=== PATIENT | female | born 1995 | race Caucasian/White ===

== ENCOUNTER 2019-07-10 01:27 | Emergency (ER) | payer OTHER ==
[~2019-07-10] VITALS: Ht 160 cm; Wt 69.1 kg
[2019-07-10] MEDS ORDERED: ONDANSETRON 4MG/2ML VIAL (J2405) IV ONE (01:45)
[2019-07-10] MEDS ORDERED: NS 1,000 ML IV ONE (01:45)
[2019-07-10 01:53] LABS: BASO % 0.6 % (0.0-1.0); EOS # 0.2 10^3/uL (0.0-0.50); EOS % 2.4 % (0.0-3.0); HEMATOCRIT 37.7 % (36.0-47.0); HEMOGLOBIN 12.9 g/dl (12.0-15.5); MEAN CORPUSCULAR HEMOGLOBIN 31.4 pg (27.0-33.0); MEAN CORPUSCULAR HGB CONC 34.2 g/dl (32.0-36.5); MEAN CORPUSCULAR VOLUME 91.7 fl (80.0-96.0); MONO # 0.5 10^3/uL (0.0-0.8); NEUTROPHILS # 3.3 10^3/uL (1.8-7.7); PLATELET COUNT, AUTOMATED 298 10^3/uL (150-450); RED BLOOD COUNT 4.11 10^6/uL (4.00-5.40)
[2019-07-10 02:45] LABS: ACETAMINOPHEN LEVEL < 2.0 UG/ML (10.0-30.0); ALBUMIN 4.1 GM/DL (3.2-5.2); ALT/SGPT 25 U/L (12-78); BILIRUBIN,DIRECT 0.1 MG/DL (0.0-0.2); BILIRUBIN,TOTAL 0.3 MG/DL (0.2-1.0); BLOOD UREA NITROGEN 11 MG/DL (7-18); CALCIUM LEVEL 8.7 MG/DL (8.5-10.1); CARBON DIOXIDE LEVEL 25 MEQ/L (21-32); CHLORIDE LEVEL 109 MEQ/L (98-107); CK-MB VALUE MASS 2.1 NG/ML (<3.6); CPK CREATINE PHOSPHOKINASE 88 U/L (26-192); CREATININE FOR GFR 0.81 MG/DL (0.55-1.30); ETHYL ALCOHOL (ETHANOL) 0.196 % (0.000-0.010); GLOMERULAR FILTRATION RATE > 60.0 (>60); GLUCOSE, FASTING 98 MG/DL (70-100); MB/CK RELATIVE INDEX 2.39 (< OR =4); POTASSIUM SERUM 3.5 MEQ/L (3.5-5.1); SALICYLATE LEVEL < 1.7 MG/DL (5.0-30.0); SODIUM LEVEL 144 MEQ/L (136-145); TROPONIN I < 0.02 NG/ML (< 0.10)
[2019-07-10 03:14] LABS: AMPHETAMINES LEVEL URINE NEGATIVE (NEGATIVE); BARBITURATES URINE NEGATIVE (NEGATIVE); BENZODIAZEPINES URINE NEGATIVE (NEGATIVE); CANNABINOIDS URINE NEGATIVE (NEGATIVE); COCAINE METABOLITE URINE NEGATIVE (NEGATIVE); METHADONE URINE NEGATIVE (NEGATIVE); OPIATES URINE NEGATIVE (NEGATIVE); PHENCYCLIDINE URINE NEGATIVE (NEGATIVE)
--- NOTE | 2019-07-10 03:17 | REPVR ---
EXAM: CT Head Without Contrast EXAM DATE/TIME: 07/10/2019 1:42 AM CLINICAL HISTORY: 24 years old, female; Altered mental status/memory loss; Confusion or disorientation TECHNIQUE: Imaging protocol: Computed tomography images of the head without contrast. Radiation optimization: All CT scans at this facility use at least one of these dose optimization techniques: automated exposure control; mA and/or kV adjustment per patient size (includes targeted exams where dose is matched to clinical indication); or iterative reconstruction. COMPARISON: No relevant prior studies available. FINDINGS: Brain: No acute intracranial hemorrhage or mass effect. No discrete geographic area of hypoattenuation to suggest large vessel territorial infarct identified at this time. Ventricles: No ventriculomegaly. Bones/joints: No acute fracture. Sinuses: No fluid levels. Mastoid air cells: No mastoid effusion. Soft tissues: Unremarkable. IMPRESSION: No acute intracranial hemorrhage, mass effect or evidence of large vessel territorial infarction. Electronically signed by: Shan Gil On 07/10/2019 03:16:45 AM
--- NOTE | 2019-07-10 06:37 | ECGEPIP ---
[facility] - ED Test Date: 2019-07-10 Pat Name: SAYRA VALDEZ Department: Room: - Gender: Female Bilingual Secretary: CINDY : 1995 Requested By: ELLIOT Coates Order Number: [id number] Reading MD: Po Maza Measurements Intervals [place] Rate: 60 P: 53 AL: 166 QRS: 53 QRSD: 97 T: 31 QT: 430 QTc: 432 Interpretive Statements SINUS RHYTHM ST elev probable normal early repol pattern VS PERICARDITIS NO PRIOR ECG FOR COMPARISON Electronically Signed on 07-10-2019 6:37:17 EDT by Po Maza
[2019-07-10 08:26] VITALS: BP 110/65
== END 2019-07-10 08:28 | disposition home or self-care (01) ==
LOC: M ED 01:27
DX: S09.90XA Unspecified injury of head, initial encounter (principal); X58.XXXA Exposure to other specified factors, initial encounter; Y92.89 Other specified places as the place of occurrence of the external cause; F10.229 Alcohol dependence with intoxication, unspecified; Y90.0 Blood alcohol level of less than 20 mg/100 ml; Z88.1 Allergy status to other antibiotic agents; Z88.2 Allergy status to sulfonamides
CPT/HCPCS: 70450; 80048; 80076; 80307; 82140; 82550; 82553; 84443; 84484; 85025; 93005; 93041; 94760; 96374; 99285; G0480; J2405

== ENCOUNTER → 2019-12-16 | Outpatient (CLI) | payer OTHER ==
[~2019-12-16] VITALS: Ht 165.1 cm; Wt 86.1 kg
[~2019-12-16] MED LIST: MAPA500T2 PO; NS 1,000 ML IV SCH; PRENTAB9 PO; cefTRIAXone SOD 1 GM in D5W MINI-BAG PLUS 50 ML IV ONE
[2019-12-16 11:03] VITALS: BP 108/58
--- NOTE | 2019-12-16 12:34 | REP ---
Second trimester obstetric ultrasound for anatomy: There is a single intrauterine gestation in a vertex presentation. There is movement and cardiac activity, the heart rate is 158 beats per minute. The placenta is posterior. There is no previa or abruptio. The placenta is grade zero. The amniotic fluid volume subjectively is normal. The cervix measures through 0.6 cm length. Gestational age by today's ultrasound is 23 weeks 4 days/HAIM 04/09/2020. Gestational age by LMP is 23 weeks 2 days/HAIM 04/11/2020. weight is 611 grams/1 pound, 5 ounces. This is the 54th percentile for 23 weeks 2 days. The following anatomic structures are identified and are unremarkable: Facial profile, upper lip, lungs, four-chamber heart, cardiac right ventricular outflow tract, diaphragm, stomach, cord insertion, three-vessel cord, kidneys, bladder and upper lower extremities. Suboptimally demonstrated because of position are: the intracranial contents, cardiac left ventricular outflow tract and spine. The followup study dedicated to these structures might be considered. Electronically Signed by Jose Cr MD 12/16/2019 12:26 P
[2019-12-16] MEDS: LR 1,000 ML IV SCH ×2 (13:21→13:34)
[2019-12-16 13:27] VITALS: BP 117/68
[2019-12-16 13:29] LABS: HEMATOCRIT 33.6 % (36.0-47.0); HEMOGLOBIN 11.5 g/dl (12.0-15.5); MEAN CORPUSCULAR HEMOGLOBIN 31.9 pg (27.0-33.0); MEAN CORPUSCULAR HGB CONC 34.2 g/dl (32.0-36.5); MEAN CORPUSCULAR VOLUME 93.1 fl (80.0-96.0); PLATELET COUNT, AUTOMATED 223 10^3/uL (150-450); RED BLOOD COUNT 3.61 10^6/uL (4.00-5.40); WHITE BLOOD COUNT 12.2 10^3/uL (4.0-10.0)
[2019-12-16 15:50] VITALS: BP 104/51
[2019-12-16 16:16] VITALS: BP 110/63
--- NOTE | 2019-12-16 18:26 | HPE ---
DATE OF ADMISSION: 12/16/2019 A 24-year-old 1, para 0, last menstrual period (LMP) 06/23/2019, estimated date of confinement (EDC) 04/11/2020 at 23 and 4 weeks of gestation with a history of multiple complaints, some of which were right upper quadrant pain, pelvic pressure, like she has to have a bowel movements through her vagina, and lower abdominal discomfort. Labs are A negative, HIV negative, hepatitis negative, RPR negative, rubella immune, Varicella immune. Pap normal. Urine was positive for Escherichia (E) coli. Unclear as to whether she had antibiotic for test of cure. She did inform us that the history intake that she was on Macrobid previously. Gonorrhea and chlamydia are negative. Blood pressure 104/51, respirations 16, pulse 83, temperature 98.5. Hemoglobin 1005, hematocrit 33.6, and platelets 223. Urine was 1014, pH 7. She had +2 esterase, +1 bacteria, +2 nitrates. She has strong indication of urinary tract infection and dehydration. On examination, symphysis fundus height is 24, vertex presenting, category 1 strip. The cervix is closed, posterior, and high. No vaginal bleeding or discharge. Ultrasound showed that the cervix was 3.6 cm long. No funneling. Vertex presenting. KRISTAL was normal, at the 54% for growth, and the cursory anatomy was normal. In summary, we have a 23+ week of gestation with severe dehydration with urinary tract infection. Plan of management is to hydrate. Give her an IV antibiotic plus oral antibiotics. Followup in 7-10 days with a repeat urine for test of cure. Precautions were given, oral medications were dispensed, and the patient was discharged undelivered. All questions were answered. A 40-minute discussion.
== END ==
LOC: M LDO 10:40
PROVIDERS: ATTEND Obstetrics & Gynecology
DX: O26.892 Other specified pregnancy related conditions, second trimester (principal); O23.42 Unspecified infection of urinary tract in pregnancy, second trimester; O99.282 Endocrine, nutritional and metabolic diseases complicating pregnancy, second trimester; Z3A.23 23 weeks gestation of pregnancy
CPT/HCPCS: 76811; 76817; 81001; 85027; 87088; 87186; 96360; 96361; G0378; G0463; J0696

== ENCOUNTER 2019-12-21 17:36 | Outpatient (CLI) | payer OTHER ==
[~2019-12-21 17:36] MED LIST changes: -NS 1,000 ML IV SCH; -cefTRIAXone SOD 1 GM in D5W MINI-BAG PLUS 50 ML IV ONE
[2019-12-21 18:00] VITALS: BP 114/60
--- NOTE | 2019-12-21 19:20 | IPNPDOC ---
Text Note Date of Service The patient was seen on 12/21/19. NOTE S: Ms. Jeremiah Kinsey is a 24yo at 24+0wks, EDC by 1st trimester US is [id number]. She presents to LND triage s/p fall today at 1720. She states she was chasing her dog and slipped on the ice; she states she struck the right side of her body, including her right abdomen. She initially felt pain and abdominal tightness after her fall, but she denies any pain now. She reports excellent movement, denies LOF/VB/CTX. O: VSS, BP normotensive FHR 145, moderate variability, + accels, no decels noted No CTX present Abdomen tender to palpation on side where she fell SSE/VE deferred at this time CBC/KB ordered A: Primip, not in labor, stable with reassuring status P: Report provided to Dr. Gonzalez Prolonged monitoring x4 hours after fall (2119) Continue to monitor maternal/ status. VS,Fishbone, I+O VS, Fishbone, I+O Vital Signs Date Time Temp Pulse Resp B/P (MAP) Pulse Ox O2 Delivery O2 Flow Rate FiO2 12/21/19 18:00 98.2 83 18 114/60 (78) 98.2 ISABEL COLE CNM Dec 21, 2019 19:20
[2019-12-21 19:37] LABS: HEMATOCRIT 33.6 % (36.0-47.0); HEMOGLOBIN 11.1 g/dl (12.0-15.5); MEAN CORPUSCULAR HEMOGLOBIN 31.4 pg (27.0-33.0); MEAN CORPUSCULAR VOLUME 95.2 fl (80.0-96.0); PLATELET COUNT, AUTOMATED 240 10^3/uL (150-450); RED BLOOD COUNT 3.53 10^6/uL (4.00-5.40); WHITE BLOOD COUNT 10.8 10^3/uL (4.0-10.0)
[2019-12-21 20:42] VITALS: BP 116/62
--- NOTE | 2019-12-22 09:20 | IPN ---
DATE: 12/21/2019 This lady was seen by the pantograph machine operator. The patient is 24 years old, 1, para 0, LMP 06/23/2019, EDC 04/11/2020 at 24 and 3 weeks of gestation. She had a fall on her abdomen with no loss of fluid. No contractions. No bleeding. Risk factors: She is Rh negative and presently has a urinary tract infection (UTI). Laboratories are A negative, HIV negative, hepatitis negative, RPR negative, rubella immune. Varicella immune. Pap normal. Urine was positive. Gonorrhea and chlamydia negative. Her Kleihauer-Betke was negative, and her hemoglobin 11.1, hematocrit 33.6 and platelets were 240. PHYSICAL EXAMINATION: She appears in no distress. Symphysis fundus height is 24. heart is present. No contractions on the monitor. Moderate variability, accelerations were noted. No visible evidence of loss of fluid, bleeding or discharge. Blood pressure was 114/60, respirations are 18, pulse 83, temperature is 98.2. After well over 2 hours, no contractions. No bleeding. heart was present. All blood work was normal. The patient was given precautions. She was discharged undelivered. She has a followup appointment on 12/29/2019.
== END 2019-12-21 20:50 | disposition home or self-care (01) ==
LOC: M LDO 17:36
PROVIDERS: ATTEND Registered Nurse Maternal Newborn
DX: Z04.3 Encounter for examination and observation following other accident (principal); W00.0XXA Fall on same level due to ice and snow, initial encounter; Y92.89 Other specified places as the place of occurrence of the external cause; Y93.K1 Activity, walking an animal; Y99.8 Other external cause status; Z3A.24 24 weeks gestation of pregnancy
CPT/HCPCS: 36415; 76815; 85027; 85460; G0378; G0463

== ENCOUNTER 2020-04-05 15:57 | Outpatient (CLI) | payer OTHER ==
[~2020-04-05] VITALS: Ht 165.1 cm; Wt 102.1 kg
[2020-04-05 16:17] VITALS: BP 111/72
[2020-04-05] MEDS ORDERED: TUMS500C PO (16:22)
--- NOTE | 2020-04-05 17:03 | IPNPDOC ---
Text Note Date of Service The patient was seen on 04/05/20. NOTE Triage Note Thea is a 24yo with SIUP at 39w1d by early u/s presenting for uncertainty whether she has had ROM. She notes she has had increased leakage of vaginal fluid for the past day, especially this morning. Has had to change panty liners and threw away a pair of wet painties. Not soaking pads. No vaginal bleeding. Does have ctx, feels them in her back mostly. Baby moving well. No intercourse in last 24hr. No f/c/CP/SOB. Has had some nausea and episode of diarrhea. She notes she was 2/60 yesterday in clinic. 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 SCE 2/80/-3, ballottable. Reassuring status. Benign exam and vitals wnl. Plan: -Safe for discharge home -Discussed labor precautions -good oral hydration -Keep next routine OB appt if no labor sooner -Safe for discharge Dr. Rosangela Petersen MD VS,Jamin, I+O VS, Jamin, I+O Vital Signs Date Time Temp Pulse Resp B/P (MAP) Pulse Ox O2 Delivery O2 Flow Rate FiO2 04/05/20 16:17 99.0 98 18 111/72 (85) Rosangela Petersen MD April 05, 2020 17:03
== END 2020-04-05 17:04 | disposition home or self-care (01) ==
LOC: M LDO 15:57
PROVIDERS: ATTEND Registered Nurse Maternal Newborn
DX: O26.893 Other specified pregnancy related conditions, third trimester (principal); N89.8 Other specified noninflammatory disorders of vagina; O47.1 False labor at or after 37 completed weeks of gestation; Z3A.39 39 weeks gestation of pregnancy
CPT/HCPCS: 59025; 76815; G0378; G0463

== ENCOUNTER 2020-04-06 02:49 | Inpatient (IN) | payer OTHER ==
[2020-04-06] VITALS (45 sets, daily range): BP systolic 74–142; BP diastolic 42–93
[~2020-04-06] VITALS: Ht 165.1 cm; Wt 95.4 kg
[~2020-04-06 02:49] MED LIST changes: +TUMS500C PO
[2020-04-06 03:46] LABS: HEMATOCRIT 35.1 % (36.0-47.0); HEMOGLOBIN 11.6 g/dl (12.0-15.5); MEAN CORPUSCULAR VOLUME 90.7 fl (80.0-96.0); PLATELET COUNT, AUTOMATED 162 10^3/uL (150-450); RED BLOOD COUNT 3.87 10^6/uL (4.00-5.40); WHITE BLOOD COUNT 12.8 10^3/uL (4.0-10.0)
[2020-04-06] MEDS ORDERED: LACTATED RINGER'S 1000 ML IV STA (03:57)
[2020-04-06] MEDS ORDERED: PROMETHAZINE INJ 25 MG/ML VIAL (J2550) IV ONE ×2 (04:15→14:00)
[2020-04-06] MEDS: BUTORPHANOL 2 MG/ML INJ (J0595) IV PRN ×2 (06:51→14:16)
[2020-04-06] MEDS: LR 1,000 ML IV SCH ×3 (06:52→17:08)
[2020-04-06] MEDS ORDERED: OXYTOCIN DRIP 30 UNITS in IV 1 EA IV SCH (07:30)
--- NOTE | 2020-04-06 07:46 | HPEPDOC ---
Obstetrical History & Physical General Date of Admission April 06, 2020 at 03:16 History of Present Illness Thea is a 24yo with SIUP at 39w2d by 7wk u/s re-presenting with CC of loss of fluid. She presented yesterday afternoon for similar complaint and SROM workup was all negative. She then went home and states that she had a large gush of fluid this time with continued leakage that soaked pads. Fluid clear. ROM occurred at 0215. She is grossly ruptured on presentation this time. Good movement. Feels ctx but not too strong yet. No vaginal bleeding. No f/c/n/v/CP/SOB. Chief Complaint: Contractions, term, LOF, term Information Provided By: Patient Care Care: Good Care Dating Final EDC: April 11, 2020 Final EDC by: 1st trimester (US) Antepartum Course Diagnos(e)s Rh negative (received Rhogam at 5wk for vaginal spotting and again 08 February 2020), excessive weight gain (30 pounds) with starting BMI 28 (overweight) Height (inches): 65 Pre- weight (lbs.): 170 Admission Weight (lbs.): 220 Change in Weight (lbs.): 30 Past Medical History Past Obstetrical History : Past Obstetrical History: Primgravida Past Medical History Medical History starting BMI 28 Surgical History: [place] teeth Family History Significant Family History: No pertinent family hx Social History Family situation: Spouse/partner home Psychosocial History: No pertinent psych hx * Smoker: non-smoker Alcohol: Denies Drugs: denies Imunizations Tdap status: current Influenza Status: current Allergies Coded Allergies: Sulfa (Sulfonamide Antibiotics) (Verified Allergy, Severe, ANAPHYLAXIS, 07/10/19) Medications Scheduled No.137/Iron/Folic Acd ( Vitamin Tablet) 1 Each Tablet, 1 TAB PO DAILY Scheduled PRN Calcium Carbonate (Tums) 200 Mg Tab.chew, 2 TAB PO Q4H PRN for HEARTBURN Physical Examination Physical Examination GENERAL: Alert and oriented times three. ABDOMEN: Gravid and non-tender to touch. FETUS: Is vertex (VTX) by sterile vaginal examination (SVE) EXTREMITIES: No edema BLE Grossly ruptured, clear fluid Vital Signs/I&O Vital Signs Date Time Temp Pulse Resp B/P (MAP) Pulse Ox O2 Delivery O2 Flow Rate FiO2 04/06/20 06:51 17 04/06/20 04:54 98.8 78 108/52 (70) Laboratory Data 24H LABS Laboratory Tests 2 04/06/20 03:24: Nucleated Red Blood Cells % (auto) 0.0 04/06/20 03:27: Serology Scanned Report Hepatitis B Testing CBC/BMP Laboratory Tests 04/06/20 03:24 Pertinent Laboratoy Data Blood Type: A- RBC Antibody Screen: Negative HIV: Negative Hepatitis B: Negative Hepatitis C: Unknown Rapid Plasma Reagin: Nonreactive Rubella: Immune Varicella: Immune Chlamydia/Gonorrhea: Negative Group B Streptococcus: Negative Quad Screen Test: Negative ([id number] normal) Glucose Tolerance Test: 84 Anatomy Ultrasound Ultrasound Date: Nov 24, 2019 Placenta Location: Posterior Normal Anatomy: Yes Placenta Previa: No Steroid Therapy Steroid Therapy: No Vaginal Examination Dilation: 2cm Effacement: 90% Station: -2 Cervical Consistency: Soft Cervical Position: Anterior Presentation: Cephalic presentation Assessment Heart Rate (FHR): 130 Variability: Moderate Accelerations: Positive Decelerations: None Tocometer Contractions: Yes Frequency: regular, every 2-5 min. Duration: greater than 60 seconds Strength: palpated as moderate Assessment/Plan Assessment Thea is a 24yo with SIUP at 39w2d by 7wk u/s with SROM, clear at 0215. SCE 2/90/-2 on admission with ctx q3-5min. Cat I FHRT. Cephalic by SCE. GBS negative. Vitals wnl, benign exam. PNC/PMhx significant for: Rh negative (received Rhogam at 5wk for vaginal spotting and again 08 February 2020), excessive weight gain (30 pounds) with starting BMI 28 (overweight) Plan Admit and orient. Product Development Assistant and consent. Diet: clear liquids Group B Streptococcus (GBS) negative Labs and intravenous (IV) per unit protocol. Lactated Ringers (LR): Bolus 1000 mL, then at 125 mL/hr. Anticipate normal spontaneous delivery () Candidate for epidural in active labor, stadol/phenergan in latent labor Safe to proceed MD Nicola Walsh Katrina D MD April 06, 2020 07:46
--- NOTE | 2020-04-06 14:09 | IPNPDOC ---
Obstetrical Progress Note Date of Service April 06, 2020 Subjective [place] of care and labor progress. Thea is a 24yo with SIUP at 39w2d who was admitted this morning for ROM at 0215, clear fluid. She has had expectant management d/t the status of the labor floor. She did received stadol/phenergan this morning around 0650 which gave her good pain relief. She has been up to the bathroom and using the tub for pain management, as well. She now states her contractions are much more painful and she desires more pain medication. She is not ready for an epidural yet. Objective O: VSS, afebrile, normotensive VE: unchanged from admission exam (/-2) Scant clear fluid on pad FHR via intermittent monitorin, moderate variability, + accels (no decels noted during time of monitoring) Contractions are irregular and mild by palpation. Vital Signs Date Time Temp Pulse Resp B/P (MAP) Pulse Ox O2 Delivery O2 Flow Rate FiO2 04/06/20 12:47 99.0 88 18 110/62 (78) Sterile Vaginal Examination Postion/Presentation: Cephalic presentation Assessment and Plan Status: Reassuring Group B Streptococcus: Negative Anticipate: Vaginal Delivery Additional Comments A: 24yo at 39+2wks, PROM; early labor without cervical change. Category I FHT. P: Stadol/phenergan now for pain control Epidural available as labor progresses Start pitocin now per low dose protocol CEFM x2 Close monitoring of maternal/ status Safe to proceed Consult OB if indicated Anticipate ISABEL COLE CNM April 06, 2020 14:09
[2020-04-06] MEDS ORDERED: FENTANYL 2MCG/ML ROPIVACAINE 0.2% IN 0.9% NACL 100ML IVBAG As Ordered ONE (15:32)
[2020-04-06] MEDS ORDERED: ePHEDrine SULFATE 25 MG/5 ML(5MG/ML) SYRINGE As Ordered ONE (16:40)
[2020-04-06] MEDS ORDERED: EPIDURAL COMMENT XX SCH (17:00)
[2020-04-06] MEDS ORDERED: ONDANSETRON 4MG/2ML VIAL IV PRN (17:00)
[2020-04-06] MEDS ORDERED: LACTATED RINGER'S 1000 ML IV PRN (17:00)
[2020-04-06] MEDS ORDERED: FENTANYL/ROPIVACAINE/NACL BAG 100 ML EPIDURAL SCH (17:00)
[2020-04-06] MEDS ORDERED: EPIDURAL/PCA KEYS XX PRN (17:00)
[2020-04-06] MEDS ORDERED: diphenhydrAMINE 50MG/ML VIAL (J1200) IV PRN (17:00)
[2020-04-06] MEDS ORDERED: REFRIGERATOR IV KEYS XX PRN (17:00)
[2020-04-06] MEDS ORDERED: NALOXONE INJ 0.4MG/1ML VIAL (J2310 PER 1MG) IV PRN (17:00)
[2020-04-06] MEDS: ePHEDrine SULFATE 25 MG/5 ML(5MG/ML) SYRINGE IV PRN ×3 (17:02→17:13)
[2020-04-06] MEDS: ePHEDrine SULFATE 25 MG/5 ML(5MG/ML) SYRINGE IV SCH ×3 (18:20→18:26)
[2020-04-06] MEDS ORDERED: OXYTOCIN INJ 10 UNITS/ML VIAL (J2590) As Ordered ONE (20:26)
[2020-04-06] MEDS ORDERED: ACETAMINOPHEN 500 MG TAB PO ONE (20:45)
[2020-04-06 21:13] LABS: HEMATOCRIT 32.5 % (36.0-47.0); HEMOGLOBIN 10.7 g/dl (12.0-15.5); MEAN CORPUSCULAR HEMOGLOBIN 30.1 pg (27.0-33.0); MEAN CORPUSCULAR HGB CONC 32.9 g/dl (32.0-36.5); MEAN CORPUSCULAR VOLUME 91.3 fl (80.0-96.0); PLATELET COUNT, AUTOMATED 165 10^3/uL (150-450); RED BLOOD COUNT 3.56 10^6/uL (4.00-5.40); WHITE BLOOD COUNT 17.5 10^3/uL (4.0-10.0)
[2020-04-06] MEDS ORDERED: PIPERACILLIN/TAZOBACTAM SOD 3.375 GM in D5W MINI-BAG PLUS 50 ML IV ONE (22:00)
[2020-04-06] MEDS ORDERED: BUPIVACAINE HCL 0.25% 10ML VIAL SC ONE (23:00)
[2020-04-06] MEDS ORDERED: BICITRA 30ML SOLN UDC PO ONE (23:00)
[2020-04-06] MEDS ORDERED: ACETAMINOPHEN 650 MG SUPP PR SCH (23:00)
[2020-04-06] MEDS ORDERED: ceFAZolin SOD 2 GM in IV 1 EA IV ONE (23:00)
[2020-04-07] VITALS (20 sets, daily range): BP systolic 92–143; BP diastolic 47–61
[2020-04-07] MEDS ORDERED: LIDOCAINE PRES-FREE 2% 10ML AMP As Ordered ONE (00:17)
[2020-04-07] MEDS ORDERED: EPINEPHrine INJ 1 MG/ML 1ML AMP As Ordered ONE (00:17)
[2020-04-07] MEDS ORDERED: OXYTOCIN INJ 10 UNITS/ML VIAL (J2590) As Ordered ONE (00:20)
[2020-04-07] MEDS ORDERED: ONDANSETRON 4MG/2ML VIAL As Ordered ONE (00:23)
[2020-04-07] MEDS ORDERED: fentaNYL 100 MCG/2 ML INJECTION (J3010) As Ordered ONE ×2 (00:31→02:14)
[2020-04-07] MEDS ORDERED: ONDANSETRON 4MG/2ML VIAL IV PRN ×2 (00:45→02:00)
[2020-04-07] MEDS ORDERED: METOCLOPRAMIDE INJ 10MG/2ML VIAL (J2765 PER 1) IV PRN (00:45)
[2020-04-07] MEDS ORDERED: diphenhydrAMINE 50MG/ML VIAL (J1200) IV PRN (00:45)
[2020-04-07] MEDS ORDERED: NALBUPHINE HCL 10 MG/ML AMP (J2300) IV PRN ×2 (00:45→02:00)
[2020-04-07] MEDS ORDERED: NALOXONE INJ 0.4MG/1ML VIAL (J2310 PER 1MG) IV PRN ×2 (00:45)
[2020-04-07] MEDS ORDERED: MORPHINE PRES-FREE INJ 10 MG/10 ML VIAL (J2274) As Ordered ONE (01:11)
[2020-04-07 01:19] LABS: CORD GAS ABE A -2.4; CORD GAS HCO3 A 24.5 MEQ/L; CORD GAS O2 SAT A 17.5 %; CORD GAS PCO2 A 50.1 mmHg; CORD GAS PH A 7.307 UNITS; CORD GAS PO2 A 12.2 mmHg; CORD GAS SBC A 20.6 MEQ/L
[2020-04-07 01:21] LABS: CORD GAS ABE V -2.7; CORD GAS O2 SAT V 48.9 %; CORD GAS PCO2 V 43.4 mmHg; CORD GAS PH V 7.343 UNITS; CORD GAS SBC V 21.1 MEQ/L; CORD GAS TCO2 V 24.4 MEQ/L
[2020-04-07] MEDS ORDERED: fentaNYL 100 MCG/2 ML INJECTION (J3010) IV PRN (02:00)
[2020-04-07] MEDS ORDERED: OXYTOCIN DRIP 30 UNITS in IV 1 EA IV SCH (02:22)
[2020-04-07] MEDS ORDERED: ANUSOL HC CREAM 30GM TOP PRN (02:30)
[2020-04-07] MEDS ORDERED: MOM 30ML SUSPENSION UDC PO PRN (02:30)
[2020-04-07] MEDS ORDERED: ACETAMINOPHEN 500 MG TAB PO PRN (02:30)
[2020-04-07] MEDS ORDERED: OXYTOCIN INJ 10 UNITS/ML VIAL (J2590) IV ONE (02:30)
[2020-04-07] MEDS ORDERED: DOCUSATE SODIUM 100 MG CAP PO PRN (02:30)
[2020-04-07] MEDS ORDERED: MEASLES,MUMPS,RUBELLA VACCINE INJ (MMR-II) (90707) SC SCH (02:30)
[2020-04-07] MEDS ORDERED: ACETAMINOPHEN TAB 650MG DOSE (2X325MG) PO PRN (02:30)
[2020-04-07] MEDS ORDERED: IBUPROFEN 600 MG TAB PO PRN (02:30)
[2020-04-07] MEDS ORDERED: RHOGAM 300 MCG (1500 IU) INJ (J2790) IM SCH (02:30)
[2020-04-07] MEDS: KETOROLAC 30 MG/ML 1ML VIAL IV SCH ×4 (04:05→21:55)
[2020-04-07] MEDS: PRENATAL VITAMINS CHEWABLE TABLET PO SCH (08:05)
[2020-04-07] MEDS: PERCOCET 5MG/325MG TAB PO PRN ×3 (08:06→21:54)
[2020-04-07] MEDS: PIPERACILLIN/TAZOBACTAM SOD 2.25 GM in D5W MINI-BAG PLUS 50 ML IV SCH ×2 (09:51→21:55)
--- NOTE | 2020-04-07 12:38 | IPN ---
DATE: 04/07/2020 This is 24-year-old, 1, para 0, at 39 and 2 weeks of gestation, complained of loss of fluid. She presented previously with similar complaint and the workup was negative. She went home, came back, large gush of fluid, and she was confirmed positive for rupture of membranes at 0215 hours. She had a few contractions but they were mild intensity. No vaginal bleeding or loss. The plan of management was to IV fluids, she is GBS negative, epidural at the appropriate interval and possibility of augmenting with Pitocin. When she had her epidural she had some significant issues with blood pressure. It took well over an hour, hour and a half to stabilize her blood pressure. Her blood pressures are still in the low range area 96/52, 99/56, and 97/54. She is just now up to about 106/58. She was experiencing at 2053 hours some chills. She had some moderate show. Examination on the vagina did not seem to have increased heat in the vagina. There was quite a bit of moulding. She is at -2 station, moulding. She is 100% effaced and fully dilated. She is feeling some pelvic pressure. Her original lab work showed that she had a white count of 12.8, hemoglobin 11.6, hematocrit 35.1, and platelets were 162. We have ordered a repeat of her complete blood count (CBC) to rule in or rule out chorio, and with her temperature at 100.2 we have given 1000 mg of Tylenol. At the present time, she is safe to proceed as a category 1 strip. The blood pressures are normalizing and we anticipate some progress.
--- NOTE | 2020-04-07 13:03 | IPN ---
DATE: 04/06/2020 This lady was admitted with a spontaneous rupture of membranes and augmented with Pitocin. She eventually got fully dilated with marked moulding. She then spiked a temperature of 101.0 with chills. She was given IV Zosyn. She did have an episodic hypotensive episode when she had her epidural. She has been pushing for over an hour at the present time. There is some persistent tachycardia and she is failing to make any progress. Our plan of management is to discontinue Pitocin, top off the epidural and reassess her in half an hour's time. Should we not have any progress and/or persistent tachycardia with the diagnosis of chorioamnionitis predictive with her elevated temperature and her white count at 17.5 with a tachycardia, we will peer financial counselor her regarding primary section.
[2020-04-08 02:00] VITALS: BP 88/47
[2020-04-08] MEDS: IBUPROFEN 800 MG TAB PO SCH ×3 (05:08→21:26)
[2020-04-08 06:00] VITALS: BP 107/65
[2020-04-08 07:03] LABS: HEMATOCRIT 26.9 % (36.0-47.0); MEAN CORPUSCULAR VOLUME 93.7 fl (80.0-96.0); PLATELET COUNT, AUTOMATED 127 10^3/uL (150-450); RED BLOOD COUNT 2.87 10^6/uL (4.00-5.40)
[2020-04-08 07:10] LABS: HEMOGLOBIN 8.6 g/dl (12.0-15.5)
[2020-04-08] MEDS: PRENATAL VITAMINS CHEWABLE TABLET PO SCH (08:13)
[2020-04-08] MEDS: PERCOCET 5MG/325MG TAB PO PRN (08:25)
--- NOTE | 2020-04-08 08:49 | IPNPDOC ---
Progress Note Date of Service: April 08, 2020 Progress Note SUBJECT: Patient is a 24 yo s/p pltcd for arrest of descent with chorio POD #1. she was on zosyn for 2hrs . patient did not meet her due to void yesterday and vincent was placed. She has been ambulating, tolerating po without problem. baby in NICU for chorio. patient is breast pumping. OBJECTIVE: VITAL SIGNS: Within normal limits, afebrile. Alert and oriented times three. Abdomen: Fundus firm at U-2. Soft, incision c/d/i. appropriate tender to palpation. LE: non pitting edema, no erythema/tenderness A/P patien is a POD #1, clinically doing well. discussed contraceptive options and patient is considering LARC method. encourage ambulating. stop zosyn. remove vincent with due to void in 4-6hrs. anticipate d/c home tomorrow. Le, DO VS, I&O, 24H, Fishbone Vital Signs/I&O Vital Signs Date Time Temp Pulse Resp B/P (MAP) Pulse Ox O2 Delivery O2 Flow Rate FiO2 04/08/20 08:25 98.8 90 16 107/65 98 Room Air I&O- Last 24 Hours up to 6 AM 04/08/20 06:00 Intake Total 1150 ml Output Total 2150 ml Balance -1000 ml Laboratory Data 24H LABS Laboratory Tests 2 04/08/20 06:36: Nucleated Red Blood Cells % (auto) 0.0 CBC/BMP Laboratory Tests 04/08/20 06:36 LURDES BRUNNER DO April 08, 2020 08:31
[2020-04-08 10:18] VITALS: BP 100/55
[2020-04-08 16:30] VITALS: BP 119/59
[2020-04-08 18:03] VITALS: BP 103/56
[2020-04-08 22:00] VITALS: BP 118/70
[2020-04-09 02:00] VITALS: BP 114/68
[2020-04-09] MEDS: PERCOCET 5MG/325MG TAB PO PRN ×2 (06:01→12:33)
[2020-04-09] MEDS: IBUPROFEN 800 MG TAB PO SCH ×2 (06:01→13:32)
[2020-04-09 06:19] VITALS: BP 111/74
--- NOTE | 2020-04-09 08:21 | IPNPDOC ---
Progress Note Date of Service: April 09, 2020 Day#: 2 Progress Note SUBJECT: Patient is a 24 yo s/p pltcd for arrest of descent with chorio POD #2. she was on zosyn for 24hrs . She is urinating without problem. She has been ambulating, tolerating po without problem. baby in NICU for chorio. patient is breast feeding. Unsure if baby will be discharged today or not. OBJECTIVE: VITAL SIGNS: Within normal limits, afebrile. Alert and oriented times three, sitting and breast feeding baby without problem. A/P patien is a POD #2, clinically doing well. discussed contraceptive options and patient is considering LARC method. encourage ambulating. D/C today if baby gets discharged. otherwise d/c tomorrow. DO [place] VS, I&O, 24H, Fishbone Vital Signs/I&O Vital Signs Date Time Temp Pulse Resp B/P (MAP) Pulse Ox O2 Delivery O2 Flow Rate FiO2 04/09/20 06:50 18 04/09/20 06:19 97.9 76 111/74 (86) Room Air 04/09/20 02:00 98 I&O- Last 24 Hours up to 6 AM 04/09/20 06:00 Intake Total 890 ml Output Total 850 ml Balance 40 ml LURDES BRUNNER DO April 09, 2020 08:21
[2020-04-09] MEDS: PRENATAL VITAMINS CHEWABLE TABLET PO SCH (08:34)
[2020-04-09] MEDS ORDERED: MOM30SS2 PO (14:43)
[2020-04-09] MEDS ORDERED: ACET-683 PO (14:43)
[2020-04-09] MEDS ORDERED: IBUP80TA PO (14:43)
--- NOTE | 2020-04-09 20:54 | OBDS ---
[facility] Obstetrical Discharge Sum. Obstetrical Discharge Summary : 1 Term: 1 Pre-term: 0 Abortions: 0 Livin VDRL: Non-Reactive Rh: Negative Rubella: Immune Infant Sex: Female Infant Weight: grams (3780) Anesthesia: Regional Anesthesia A/P, Post Course List any complications Admission diagnosis: Premature rupture of membranes at 39+2wks gestation Discharge diagnosis: s/p primary low transverse section Condition at Discharge: stable Discharge Instructions: Home Activity: as tolerated Diet: regular Medications: Filled at [facility]. [facility] Follow-up: 2 weeks for post op follow up Discharge summary: Patient admitted for premature rupture of membranes. She progressed to complete and was diagnosed with arrest of descent. Patient also diagnosed with chorioamnionitis prior to her section. Delivery was uncomplicated. course uncomplicated and patient discharge home on postoperative day #2. LURDES BRUNNER DO April 08, 2020 08:54
--- NOTE | 2020-04-10 17:14 | RO ---
DATE OF PROCEDURE: 04/07/2020 This lady is a 24-year-old, 1, admitted with spontaneous rupture of membranes and contractions at 39 and 2 weeks of gestation. She had a primary section for chorioamnionitis, failure to descend and persistent occiput posterior. Live female , 8 pounds 5 ounces (3780 grams). of 5 and 7 at one and five minutes, respectfully. Arterial pH 7.32, base excess -2.4, venous pH 7.34, base excess -2.7. PREOPERATIVE DIAGNOSIS: Chorioamnionitis, failure to descend, persistent occiput posterior (POP). POSTOPERATIVE DIAGNOSIS: Chorioamnionitis, failure to descend, persistent occiput posterior (POP). OPERATION PROPOSED: Primary section OPERATION PERFORMED: Primary section. ANESTHESIA: Epidural, plus local anesthetic for intraperitoneal procedures. ESTIMATED BLOOD LOSS: 400 mL. SURGEON: Dr. Gonzalez FELT WASHING MACHINE TENDER: Dr. Cueto for extraction, retraction and visualization, otherwise the procedure could not be completed. After adequate time-out, prepped, draped in the supine position, Beatty catheter in the bladder draining clear urine. Acetaminophen suppository 1300 mg per rectum and appropriate antibiotics IV preoperatively and sequentials in place. Pfannenstiel incision was made two fingerbreadths above symphysis pubis passing through abdominal layers securing hemostasis. Opening peritoneal cavity a Mobius was placed in the appropriate spot. A small reflection of bladder was made. A low transverse incision made into the uterus. Baby was extracted in the POP position with fundal pressure, as mentioned, a live female infant, 8 pounds 5 ounces (3780 grams) score of 5 and 7 at one and five minutes, respectively. Placenta was manually removed. Three-vessels in cord, membranes and tissues intact. Placenta was sent off to pathology for evaluation. There was no increased heat in the uterine cavity or in the lower end of the uterine segment. The uterus contracted well under Pitocin. The lower segment oversewn usual fashion in two layers imbricating the second layer. Reperitonealization was performed and with instrument pad count correct the Mobius was removed. The perineum was closed with interlocking stitches, the fascia with interrupted, subcutaneous tissue interrupted and Dexon to the skin. Marcaine 0.25%, 10 mL to the skin with spray and Telfa, and the patient was sent to recovery in good condition.
== END 2020-04-09 15:10 | disposition home or self-care (01) | DRG 771 ==
LOC: M LDO 02:49 → M LDI 03:16 → M OBS 04-07 03:27
PROVIDERS: ADMIT Obstetrics & Gynecology; ATTEND Obstetrics & Gynecology
PROC: 10D00Z1 Extraction of Products of Conception, Low, Open Approach (ICD-10-PCS; principal; 2020-04-07 00:03)
DX: O64.0XX0 Obstructed labor due to incomplete rotation of fetal head, not applicable or unspecified (principal); O41.1230 Chorioamnionitis, third trimester, not applicable or unspecified; Z3A.39 39 weeks gestation of pregnancy; O76 Abnormality in fetal heart rate and rhythm complicating labor and delivery; Z37.0 Single live birth